=== PATIENT | female | born 1955 | race American Indian/Alaskan Native ===

== ENCOUNTER 2018-01-17 09:32 | Outpatient (CLI) | payer OTHER ==
--- NOTE | 2018-01-17 11:36 | Mammography Report ---
Screening mammogram: Routine views demonstrate a heterogeneously dense fibroglandular pattern which is diffusely and symmetrically distributed. In the central left breast just above the nipple there is suspicion of an elongated circumscribed area of nodular density measuring approximately 12 mm in size. This is questionably noted in the lateral projection. The breast pattern is otherwise unremarkable. CAD used. Impression: Left breast asymmetry. Recommendation: Prior exams are being requested for recommendation. Followup report will be issued when these are made available. BI-RADS CATEGORY: 0 = Needs additional imaging evaluation ACR BI-RADS MAMMOGRAPHIC CODES: 0 = Needs additional imaging evaluation; 1 = Negative; 2 = Benign; 3 = Probably benign; 4 = Suspicious; 5 = Malignant; 6 = Known biopsy-proven malignancy COMMENT: 1. Dense breast tissue, i.e., adenosis, fibrocystic changes, etc., may obscure an underlying neoplasm. 2. Approximately 10% of cancers are not detected with mammography. 3. A negative mammography report should not delay biopsy if a clinically suspicious mass is present.
== END 2018-01-17 09:33 | disposition home or self-care (01) ==
LOC: SPVWC 09:32
PROVIDERS: ATTEND Family Medicine
DX: Z12.31 Encounter for screening mammogram for malignant neoplasm of breast (principal)
CPT/HCPCS: 77067